=== PATIENT | female | born 1960 | race Caucasian/White ===

== ENCOUNTER 2017-07-31 17:34 | Emergency (ER) | payer MEDICARE, MEDICAID ==
[~2017-07-31] VITALS: Ht 177.8 cm; Wt 76.0 kg
[~2017-07-31 17:34] MED LIST: DONE5TAB7 PO
[2017-07-31 17:37] VITALS: BP 123/68
== END 2017-07-31 18:19 | disposition home or self-care (01) ==
LOC: ED 17:55
DX: L03.011 Cellulitis of right finger (principal); S60.462A Insect bite (nonvenomous) of right middle finger, initial encounter; F17.200 Nicotine dependence, unspecified, uncomplicated; T63.301A Toxic effect of unspecified spider venom, accidental (unintentional), initial encounter; Z86.14 Personal history of Methicillin resistant Staphylococcus aureus infection; Y93.89 Activity, other specified; Y99.8 Other external cause status; Y92.89 Other specified places as the place of occurrence of the external cause
CPT/HCPCS: 99283

== ENCOUNTER 2019-06-01 22:30 | Emergency (ER) | payer MEDICARE, MEDICAID ==
[~2019-06-01] VITALS: Ht 167.6 cm; Wt 80.1 kg
[2019-06-01] MEDS ORDERED: ALBUTEROL/IPRATROPIUM 2.5MG/0.5MG, 3 ML ONE (23:12)
--- NOTE | 2019-06-01 23:23 | NUR ---
Patient presents to ER c/o low O2 sat. Patient states her dog seemed concerned about her so she checked her SPO2. It was 57% at home. Patient denies any symptoms such as SOB, cough, fevers, CP. Patient acquired O2 from her friend but it did not help. Patient is in NAD. Respirations even and unlabored; speaking in full word sentences.
[2019-06-01] MEDS ORDERED: ALBUTEROL/IPRATROPIUM 2.5MG/0.5MG, 3 ML NPPB ONE (23:30)
[2019-06-01 23:45] LABS: BASOPHILS # (AUTO) 0.01 x10^3/uL (0-0.1); BASOPHILS % (AUTO) 0 % (0-1); EOSINOPHILS % (AUTO) 2 % (1-7); LYMPHOCYTES # (AUTO) 1.13 x10^3/uL (1-3.4); LYMPHOCYTES % (AUTO) 21 % (22-44); MD NO; MEAN CORPUSCULAR HEMOGLOBIN 30.3 pg (27.0-34.8); MEAN CORPUSCULAR HGB CONC 33.5 g/dL (32.4-35.8); MEAN CORPUSCULAR VOLUME 90.4 fL (80-100); MEAN PLATELET VOLUME 7.7 fL (7.4-10.4); MONOCYTES # (AUTO) 0.35 x10^3/uL (0.2-0.8); MONOCYTES % (AUTO) 7 % (2-9); NEUTROPHILS % (AUTO) 70 % (42-75); PLATELET COUNT 280 x10^3/uL (130-400); RED BLOOD COUNT 4.13 x10^6/uL (3.82-5.3)
[2019-06-01 23:46] LABS: ALBUMIN 3.6 g/dL (3.4-5.0); ANION GAP 5 mmol/L (5-15); CALCIUM 8.9 mg/dL (8.5-10.1); CHLORIDE 107 mmol/L (98-107); CREATININE 0.74 mg/dL (0.55-1.02)
[2019-06-01 23:57] VITALS: BP 110/61
--- NOTE | 2019-06-02 | NUR ---
Patient resting in gurney with no complaints. Awaiting xray results.
== END 2019-06-02 00:31 | disposition home or self-care (01) ==
LOC: ED 23:54
DX: J15.9 Unspecified bacterial pneumonia (principal); F11.10 Opioid abuse, uncomplicated; F17.210 Nicotine dependence, cigarettes, uncomplicated; J44.9 Chronic obstructive pulmonary disease, unspecified; Z90.49 Acquired absence of other specified parts of digestive tract; Z87.891 Personal history of nicotine dependence
CPT/HCPCS: 36415; 71045; 80048; 82040; 85025; 93005; 94640; 99285; 99406; J7512; 90471